=== PATIENT | male | born 1990 | race Hispanic/Latino ===

== ENCOUNTER 2022-12-13 13:28 | Emergency (ER) | payer BC, SELFPAY ==
[2022-12-13] VITALS (7 sets, daily range): BP systolic 107–130; BP diastolic 62–90; PULSE 63–72; RESP 13–18; TEMP 36.6–37.1; O2SAT 98–100
--- NOTE | 2022-12-13 13:46 | ED.HA ---
HPI - Headache General Chief Complaint: Headache Stated Complaint: Headache Time Seen by Provider: 12/13/22 13:45 Source: patient Mode of arrival: ambulatory Limitations: no limitations History of Present Illness HPI Narrative: Micha is a 32-year-old male patient presenting to the ER today with complaints of a headache past 2 days. He reports he has taken some Excedrin migraine and Tylenol and this is not relieved his headache. He reports he does have a history of migraine and has had a CT scan done in the past and that was normal. States he is having some photosensitivity and phono sensitivity denies any nausea currently. He denies any chest pain, shortness of breath, visual changes, or dizziness. Related Data Allergies Allergy/AdvReac Type Severity Reaction Status Date / Time No Known Allergies Allergy Verified 12/13/22 13:29 Review of Systems Review of Systems: Pertinent positives per HPI. Patient denies any fever, chills, rash, visual changes, dizziness, cough, runny nose, sore throat, shortness of breath, chest pain, palpitations, nausea, vomiting, diarrhea, constipation, abdominal pain, or any urinary issues. PMFSH Comments At the time of my signature, I reviewed and agree with the nursing past medical, surgical, social, and family history. There is no relevant family history pertinent to the patient complaint. Exam Narrative: General: Well-developed, well nourished, in no apparent distress Head: Normocephalic, atraumatic Eyes: Pupils equally round and reactive to light bilaterally, EOM intact, sclera and conjunctive clear, no discharge, lids normal Ears: TMs intact and clear, ear canals clear, no drainage, grossly hearing normal. Nose: Nares patent, no discharge, no inflammation, no sinus tenderness. Mouth: Oropharynx without lesions or masses, good dentition, MMM. Tongue midline, even rise and fall of uvula Neck: Supple, trachea midline, no enlargement of anterior or posterior cervical nodes, no thyroid masses or goiter palpable. Cardio: Regular rate and rhythm, s1 and s2 normal, no murmur appreciated. Resp: Clear to auscultation bilaterally anteriorly and posteriorly, no rhonchi, rales, wheezing or rubs Musculoskeletal: No deformity, non-tender to palpation, grossly normal range of motion, muscle strength strong and equal, peripheral pulse strong, no edema, no cyanosis, normal gait and station Neuro: Alert and oriented x4 with normal speech, no focal deficits, cranial nerves I through XII intact, muscle strength 5 out of 5, sensation intact bilaterally Course Course Emergency Course: Portions of this record may have been created with voice recognition software. Vital Signs Vital signs: Vital Signs Temperature 36.6 C 12/13/22 13:31 Pulse Rate 72 12/13/22 13:31 Respiratory Rate 18 12/13/22 13:31 Blood Pressure 128/86 12/13/22 13:31 Pulse Oximetry 98 12/13/22 13:31 Oxygen Delivery Room Air 12/13/22 13:31 Temperature 36.9 C 12/13/22 16:27 Pulse Rate 63 12/13/22 16:27 Respiratory Rate 13 12/13/22 16:27 Blood Pressure 107/90 12/13/22 16:27 Pulse Oximetry 100 12/13/22 16:27 Oxygen Delivery Room Air 12/13/22 13:31 Vital signs reviewed MDM - Headache MDM Narrative Medical decision making narrative: At the time of visit patient is ready resting on the exam table. History of Migraine VASQUEZ with normal CT scan. Rates his pain currently an 8/10. Toradol 30 mg IV, Benadryl 25 mg IV, and L of saline was infused. after infusion patient's pain was 0/10. COVID testing was negative. Supportive measures were discussed with the patient he voiced understanding discharge instructions and agrees to treatment plan. Differential Diagnosis Differential diagnosis: Likely migraine, tension headache, subarachnoid hemorrhage, headache, meningitis and sinusitis Lab Data Labs: Lab Results 12/13/22 Range/Units 14:47 Influenza A (RT-PCR) Negative (Negative)
[2022-12-13] MEDS: diphenhydrAMINE HCl INJ 50 MG/ML VIAL 25 MG IV PUSH (14:12)
[2022-12-13] MEDS: SODIUM CHLORIDE 0.9% IV 1,000 ML 999 ML IV CONT (14:12)
[2022-12-13] MEDS: KETOROLAC 30 MG/ML VIAL (*BKC) IV PUSH (14:13)
[2022-12-13 15:30] LABS: Influenza A QL RT-PCR Negative (Negative); Influenza B QL RT-PCR Negative (Negative); SARS-CoV-2 RNA PCR Negative (Negative)
== END 2022-12-13 16:29 | disposition home or self-care (01) ==
PROVIDERS: Emergency Provider Nurse Practitioner Family
DX: R51.9 Headache, unspecified (principal); Z20.822 Contact with and (suspected) exposure to COVID-19
CPT/HCPCS: 87636; 96361; 96374; 96375; 99284; J1200; J1885; J7030